=== PATIENT | female | born 1975 | race Caucasian/White ===

== ENCOUNTER 2021-03-26 10:22 | Day surgery (SDC) | payer BC ==
[2021-03-20 11:37] LABS: Absolute Lymphocytes (CBC) 1.2 K/uL (0.7-4.9); Basophils % 0.8 % (0-1.3); Hematocrit 41.9 % (36.0-45.0); Lymphocytes % 12.3 % (15.3-44.8); MPV 6.2 fL (7.6-11.3); RBC Red Blood Cell Count 5.04 M/uL (3.86-4.86)
[2021-03-20 11:43] LABS: Urine Appearance SL CLOUDY (Clear); Urine Bilirubin NEGATIVE (Negative); Urine Blood Trace-intact (Negative); Urine Color YELLOW (Yellow); Urine Glucose NEGATIVE (Negative); Urine Specific Gravity 1.025 (1.005-1.030)
[2021-03-20 11:44] LABS: Urine Microscopic Reflex ORDER UMIC; Urine Protein NEGATIVE (Negative); Urine Urobilinogen 0.2 mg/dL (0.2-1.0); Urine pH 7.5 (5.0-7.0)
[2021-03-20 11:46] LABS: Urine Amorphous Sediment 2+ /HPF (NONE SEEN); Urine Bacteria <20 /HPF (<20); Urine RBC NONE SEEN /HPF (NONE SEEN)
[2021-03-26] MEDS ORDERED: Ringers Lactate 1,000 ML IV ONE ×2 (11:01→11:32)
[2021-03-26] MEDS ORDERED: GLYCOPYRROLATE 0.2 MG/ML SYR ONE ×3 (11:25→14:34)
[2021-03-26] MEDS ORDERED: MIDAZOLAM HCL 2 MG/2 ML INJ ONE (11:25)
[2021-03-26] MEDS ORDERED: propofoL 200 MG/20 ML VIAL IV ONE (11:26)
[2021-03-26] MEDS ORDERED: LIDOCAINE 1% MPF 2 ML AMPULE ONE (11:26)
[2021-03-26] MEDS ORDERED: FENTANYL CITR 100 MCG/2 ML ONE (11:26)
[2021-03-26] MEDS ORDERED: ROCURONIUM 50 MG/5 ML VIAL IV ONE ×2 (11:31→13:28)
[2021-03-26] MEDS ORDERED: BUPIVACAINE 0.25% PF 30 ML VIAL ONE (11:32)
[2021-03-26] MEDS ORDERED: CEFAZOLIN/SWI 2gm 2 GM/20 ML SYR ONE (11:34)
[2021-03-26] MEDS ORDERED: ONDANSETRON 4 MG/2 ML VIAL ONE (11:39)
[2021-03-26] MEDS ORDERED: KETOROLAC 30 MG/ML INJ ONE (11:40)
[2021-03-26] MEDS ORDERED: dexAMETHasone 10 MG/ML VIAL ONE (11:40)
[2021-03-26] MEDS ORDERED: ACETAMINOPHEN 500 MG TAB ONE (11:56)
[2021-03-26] MEDS ORDERED: CELECOXIB 100 MG CAPSULE ONE (11:56)
[2021-03-26] MEDS ORDERED: NEOSTIGMINE 1 MG/ML -5 ML ONE (14:45)
[2021-03-26] MEDS ORDERED: MEPERIDINE HCL 25 MG/ML SYR ONE (15:01)
[2021-03-26] MEDS ORDERED: MEPERIDINE HCL 25 MG/ML SYR IM PRN (15:08)
[2021-03-26] MEDS ORDERED: PROMETHAZINE INJ 25 MG/ML AMP IV PRN (15:08)
[2021-03-26] MEDS ORDERED: HYDROCODONE/APAP 5/325 MG TAB PO PRN (15:08)
[2021-03-26 15:17] VITALS: O2SAT 100
--- NOTE | 2021-03-26 15:20 | P.BOP ---
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
[2021-03-26] MEDS ORDERED: IBUPROFEN 600 MG TAB PO PRN (15:57)
[2021-03-26 16:31] VITALS: BP 136/80; TEMP 98.2; BMI 22.6
[2021-03-26] MEDS ORDERED: HOME MED 1 EA UNK (Mirtazapine [Mirtazapine] 45 MG Tablet) PO SCH (21:00)
[2021-03-26] MEDS ORDERED: lamoTRIgine 100 MG TAB PO SCH (21:00)
[2021-03-26] MEDS ORDERED: HOME MED 1 EA UNK (Lamotrigine [Lamictal] 200 MG Tablet) PO SCH (21:00)
[2021-03-26] MEDS ORDERED: MIRTAZAPINE 15 MG TAB PO SCH (21:00)
[2021-03-27] MEDS ORDERED: OLANZapine 2.5 MG TAB PO SCH (09:00)
[2021-03-27] MEDS ORDERED: HOME MED 1 EA UNK (Bupropion Hcl [Wellbutrin Xl] 300 MG Tab.Er.24h) PO SCH (09:00)
[2021-03-27] MEDS ORDERED: FERROUS SULFATE 325 MG TAB PO SCH (09:00)
[2021-03-27] MEDS ORDERED: OLANZAPINE 7.5 MG PO SCH (09:00)
[2021-03-27] MEDS ORDERED: BUPROPION HCL XL 150 MG TAB PO SCH (09:00)
--- NOTE | 2021-03-27 15:56 | OP ---
Date of Procedure: 03/26/2021 Surgeon: Nena Valdovinos MD Dry Janitor: Michaela Salvador. Preoperative Diagnoses: Menorrhagia, endometrial polyp, iron deficiency anemia, (AUB-P/A). Postoperative Diagnoses: Menorrhagia, endometrial polyp, iron deficiency anemia, (AUB-P/A), and blad sukhwinder adhesions. Procedures Performed: Total laparoscopic hysterectomy, extensive lysis of bladder adhesions which to ok at least half of the time 50% of the surgery or more, and cystoscopy. Anesthesia: General endotracheal. Estimated Blood Loss: 50. Specimens: Uterus, tubes. Complications: No complications. Drains: No drains. Condition: Stable. Urine Output: 250. Findings: Extensive bladder adhesions to the anterior abdominal wall at the site of Pfannenstiel sca r and adhesions at the level of the scar at the lower anterior wall of the uterus. On cysto scopy, both ureteric orifices were patent. No evidence of any injury to the bladder. Indications: The patient was consented and taken back to the OR. She was placed in a supine fashion on the operating table. 2 g of Ancef were given. Her allergy to penicillin was only rash, so it wa s acceptable to give cephalosporin, which she tolerated well. After general anesthesia was given, she was placed in a dorsal lithotomy position. Arms tucked by th e side. Positioning checked. SCDs started. Time-out done. Abdomen, vulva, vagina, and perineum were prepped and draped in a sterile fashion. Bhakta was placed to drain the bladder and a medium VCare introduced into the uterus and fixed in place. Cervix was ve ry high, but once it was grasped with Allis, it was easy to insert the manipulator. Bhakta was attach ed to a drainage bag for retrograde filling. This area was then draped. A 1 cm infraumbilical incision made with a scalpel using the open laparoscopy technique. Fascia was incised, tagged with 0 Vicryl sutures on both sides. Peritoneum entered sharply and Halley introduce d. After adequate insufflation, site of entry was checked and was unremarkable. The patient was mitra jean paul in Trendelenburg. Upper abdominal surfaces and lower abdominal surfaces were completely unremark able. No endometriosis. The abdominal scar was through the Pfannenstiel scar, precluded the placeme nt of suprapubic trocars. Two 5 mm right and left quadrant ports were placed under direct vision. F ascia and skin were injected with 0.25% Marcaine at the beginning and at the end of the case. Using graspers and LigaSure, the adhesions of the uterus were taken down from the bladder on the ante rior abdominal wall with push-spread technique making windows and taken down sharply as well as with LigaSure without leaving any myometrium on the bladder wall. Once the anterior wall of the uterus an d the fundus were taken down all the way down to the level of the hysterotomy scar, the supr apubic trocar was placed after injecting the Marcaine here and making an incision. Once this port wa s placed, the tube on the left side was taken down, utero-ovarian ligament was taken down as well as the round ligament. Posterior broad ligament dissected to the uterosacral. Ureters were undistorted and unremarkable in their courses. Then, anteriorly the bladder flap was unable to be raised independently, but once the peritoneum was incised inferior to the round ligament, I entered directly into the paravesical space gently dissecti ng down. Once I was in the left paravesical space, I was able to figure out that the bladder adhesio ns were dense on this side. The cup of the VCare was palpable, but this was on top of the bladder, s o there was no window here on this side; however, the vessels were taken down to skeletonize. The ut erine artery was identified lateral to the ureter on the sidewall and traced medially. Once this was identified, the level of the internal os was estimated and then dissection was performed in this are a to isolate the vessels without injuring the bladder. The adhesions were taken down here to expose the wall of the uterus and once this was done, I went on to the opposite side. The tube was taken do wn. The utero-ovarian ligament and round ligament were taken down. Posterior broad ligament was dis sected to the uterosacral anteriorly. Dissection was performed to open the peritoneum, then the broa d ligament was dissected down to the level of the uterine vessels. The vessels were identified on th e sidewall and then traced over to the medial aspect. Then, the paravesical space was opened up on t he right side. It was clearly able to get down to the vesicovaginal space through the paravesical sp lela. Here, dissection was done to take down the bladder sharply from the hysterotomy scar. Once thi s was taken down from this side, then I was able to dissect it down significantly and once the entire scar was released anteriorly all the way to the left, the bladder was pushed down easily. The vesic ovaginal space was entered with the help of monopolar hook blade on the anterior wall and once the di ssection was performed, there was excellent exposure of the entire cup accepting 1 spot on the left s brian at 10 o'clock position with bladder adhesions were very dense right inferior to the uterine vesse ls on the left side. I then came down and on the right side, I took the vessels, cardinal ligaments, exposed the VCare cup on the opposite side. The vessels were taken down and on dissecting the bladder off in this area, t here was some bleeding. This bleeding was cauterized with tip of bipolar Susi, hemostatic enough. Cardinal ligaments were taken down. Then, circumferential colpotomy performed and the specimen det ached and pulled out through the vagina. There was bleeding at the side at 10 o'clock position on th e cuff, which was where the uterine vessels were taken down. Two clips were placed on the uterine ar pal medial to the crossing of the ureter because this was dissected and demarcated to avoid injury t o the ureter. Then, carefully dissecting the bladder at the level of the bladder pillar down which w as bleeding from and cauterized with the tip of bipolar; however, there was still a little bit furthe r bleeding and so the 0 Vicryl angled suture was placed and tied lateral to the angle. This controll ed most of the bleeding and then bladder was dissected carefully still further here on this area and cauterized with bipolar Susi tip carefully at the very tip where the bleeding was noted. The vaginal cuff on the right side was also closed with simple 0 Vicryl and 2-0 V-Loc was used to jose se the rest of the cuff in 2 layers. There was excellent closure and reattachment of the uterosacral s back to the vaginal cuff with V-Loc. Separate V-Loc suture was placed to achieve this on the left side after closing the cuff. There was excellent hemostasis. No evidence of any bleeding. No evide nce of electrical, mechanical, or thermal injury to the ureters. The bladder appeared to be signific antly undisturbed, except 1 area of slight exposure of the detrusor fibers, but this did not warrant closure with suturing. Thorough irrigation and suction were performed. Trocars were removed. Instrument, needle, and spong e counts were done and correct at the end of the case. After the port sites were all closed, the tag ged 0 Vicryl sutures were used to close the umbilical port by tying to each other and a simple 0 Vicr yl stitch at the suprapubic port and all incisions closed with the help of 3-0 chromic. Cystoscopy was performed with 30-degree lens, normal saline and 30 degree, 17-Kinyarwanda sheath. Then, g ood jets of urine was seen readily from both ureteric orifices. The entire bladder was unremarkable. No evidence of any trauma or bruising. Bladder was drained. The vagina was cleaned up. There was bleeding at the vaginal introitus, especially at the right hymenal ring. There was a laceration of the vaginal epithelium leading to some bright red bleeding, so 0 Vicryl suture was taken and a contin uous running closure was performed to reapproximate the lacerated ends of the vaginal epithelium. Th is could have likely happened with placement and removal of the vaginal manipulator. There was a min or tear superficial and closed. Excellent hemostasis was obtained of this. The patient was recovere d from anesthesia and taken to PACU in stable condition. She has a 1-week appointment. Findings dis cussed with her . JAIME/[email or web address] Voice ID: [id number] Report ID: [id number]
== END 2021-03-26 19:50 | disposition home or self-care (01) ==
LOC: OR 10:22 → 2ND-WC 15:23 → OR 19:50
PROVIDERS: ATTEND Obstetrics & Gynecology
PROC: 0TNB4ZZ Release Bladder, Percutaneous Endoscopic Approach (ICD-10-PCS; 2021-03-26)
PROC: 0UT94ZZ Resection of Uterus, Percutaneous Endoscopic Approach (ICD-10-PCS; principal; 2021-03-26 12:00)
DX: N92.0 Excessive and frequent menstruation with regular cycle (principal); N84.0 Polyp of corpus uteri; D50.9 Iron deficiency anemia, unspecified; F40.8 Other phobic anxiety disorders; Z20.822 Contact with and (suspected) exposure to COVID-19
CPT/HCPCS: 85025; 36415; 86900; 86850; 86901; 88307; 58570; 53899; U0003; J2704; J2250; J3010; J1100; J2175; J2710; J0690; J7120 ×2; J2405; 81003; 81015